=== PATIENT | male | born 1950 | race Caucasian/White ===

== ENCOUNTER 2021-02-15 07:16 | Day surgery (SDC) | payer OTHER, MEDICARE ==
[2021-02-11 16:23] LABS: Absolute Lymphocytes (CBC) 1.9 K/uL (0.7-4.9); Basophils % 0.7 % (0-1.3); Hematocrit 48.4 % (39.6-49.0); Lymphocytes % 28.1 % (15.3-44.8); MPV 9.6 fL (7.6-11.3); RBC Red Blood Cell Count 5.79 M/uL (4.33-5.43)
--- NOTE | 2021-02-11 16:27 | RAD REPORT ---
EXAM DESCRIPTION: RAD - Chest Pa And Lat (2 Views) - 02/11/2021 4:16 pm CLINICAL HISTORY: preop Chest pain. COMPARISON: <Comparisons> FINDINGS: The lungs are clear. The heart is normal in size. No displaced fractures. Sternotomy wires present. IMPRESSION: No acute or concerning finding suspected.
[2021-02-11 16:37] LABS: Potassium 4.4 mmol/L (3.5-5.1)
--- NOTE | 2021-02-13 08:04 | EKG ---
Test Date: 2021-02-11 Test Time: 14:57:26 Senior Java Developer: COREY MEASUREMENT RESULTS: Intervals: Rate: 67 SC: 174 QRSD: 150 QT: 430 QTc: 454 [place]: P: 68 SC: 174 QRS: -64 T: 72 INTERPRETIVE STATEMENTS: Normal sinus rhythm Right bundle branch block Left anterior fascicular block Bifascicular block Voltage criteria for left ventricular hypertrophy Possible Lateral infarct, age undetermined Abnormal ECG Compared to ECG 05/22/2016 17:42:43 Left anterior fascicular block now present Bifascicular block now present Left ventricular hypertrophy now present Myocardial infarct finding now present Left-axis deviation no longer present Electronically Signed On 02-13-21 08:03:12 CDT by Scooter Santana
[2021-02-15] MEDS ORDERED: CEFAZOLIN/SWI 1gm 1 GM/10 ML SYR ONE (08:02)
[2021-02-15] MEDS ORDERED: NA CHLORIDE 0.9% 1,000 ML ONE (08:02)
[2021-02-15] MEDS ORDERED: propofoL 200 MG/20 ML VIAL IV ONE (08:41)
[2021-02-15] MEDS ORDERED: dexAMETHasone 10 MG/ML VIAL ONE (08:41)
[2021-02-15] MEDS ORDERED: MIDAZOLAM HCL 2 MG/2 ML INJ ONE (08:41)
[2021-02-15] MEDS ORDERED: FENTANYL CITR 100 MCG/2 ML ONE (08:41)
[2021-02-15] MEDS ORDERED: KETOROLAC 30 MG/ML INJ ONE (08:41)
[2021-02-15] MEDS ORDERED: ROCURONIUM 50 MG/5 ML VIAL IV ONE (08:42)
[2021-02-15] MEDS ORDERED: ONDANSETRON 4 MG/2 ML VIAL ONE (08:42)
[2021-02-15] MEDS ORDERED: LIDOCAINE 1% MPF 30 ML VIAL ONE (08:52)
--- NOTE | 2021-02-15 09:19 | P.BOP ---
Preoperative diagnosis: tender incarcerated umbilical hernia Postoperative diagnosis: same Primary procedure: Open repair tender incarcerated umbilical hernia Submarine Advisory Team Watch Officer: JASMIN MARTÍNEZ (JUMPBASTING [employer]ACING BASTER) Estimated blood loss: <10cc Specimen: sac Findings: as above Anesthesia: General Transferred to: Recovery Room Condition: Good
[2021-02-15] MEDS: HYDROMORPHONE HCL 1 MG/ML INJ ONE ×2 (09:32→09:35)
[2021-02-15 09:39] VITALS: TEMP 97
[2021-02-15] MEDS ORDERED: CODEINE 30MG/APAP 300MG TAB ONE (10:27)
[2021-02-15 12:05] VITALS: BP 138/66; O2SAT 95
--- NOTE | 2021-02-15 19:18 | OP ---
Date of Procedure: 02/15/2021 Surgeon: Gomez Briones MD Manufacture Specialist: Vi Chavez. Preoperative Diagnosis: Tender incarcerated umbilical hernia. Postoperative Diagnosis: Tender incarcerated umbilical hernia. Procedure: Open repair of tender incarcerated umbilical hernia. Estimated Blood Loss: Less than 10 cc. Specimen: Hernia sac. Anesthesia: General plus local. Indications: This is a case of a 71-year-old patient who comes to us with above diagnosis. Fully ex plained the benefits, alternatives, and risks of repair including, but not limited to infection, blee ding, damage to adjacent structures, anesthesia complication, recurrence, CA and even . He also understands this may not relieve his symptoms. He might need more than one surgical intervention. He understood, signed a consent. Procedure In Detail: The patient was brought to the operating room, placed in supine position. Anes thesia was done without complication. Abdominal area was prepped and draped in a sterile fashion. L ocal anesthesia was applied followed by a curvilinear incision in the periumbilical region. Incision was carried down to fascia. We noticed a hernia sac attached to the umbilical skin, carefully remov ed. Then, the hernia sac was opened, noticed incarcerated omentum after removing some adhesions from it. We were able to reduce back the omentum intact after inspecting it to make sure there was no bl eeding. Hernia sac was removed. Fascial edges were cleaned. We proceeded to close the area with se veral [id number] fashion #1 Prolene. Subcutaneous tissue was closed with 3-0 chromic and skin i n a subcuticular fashion with 3-0 chromic and Steri-Strips on top. Sponge count and instrument counts correct. The patient tolerated the procedure well. The patient w as sent to Recovery in stable condition. HM/MODL Voice ID: [id number] Report ID: [id number]
--- NOTE | 2021-02-15 19:24 | DS ---
Date of Discharge: 02/15/2021 Diagnosis: Tender incarcerated umbilical hernia. Procedure: Open repair of tender incarcerated umbilical hernia. Disposition: Home. Activity: As tolerated. No heavy lifting. Plan: Follow up in my office in 1 week. Call for appointment at [phone]. Keep the area dry for 48 hours, then may shower. Keep Steri-Strip intact. Medications: Include Tylenol No.3 q.4 hours p.r.n. pain, Bactrim DS p.o. b.i.d. TABATHA/ROCAEL Voice ID: [id number] Report ID: [id number]
== END 2021-02-15 10:35 | disposition home or self-care (01) ==
LOC: OR 07:16
PROVIDERS: ATTEND Surgery
PROC: 0WQF0ZZ Repair Abdominal Wall, Open Approach (ICD-10-PCS; principal; 2021-02-15 08:30)
DX: K42.0 Umbilical hernia with obstruction, without gangrene (principal)
CPT/HCPCS: 93005; 85025; 80048; 36415; 82947 ×2; 88302; 71046; 49587; J2704; J2250; J3010; J1100; J1170; J0690; J7030; J2405

== ENCOUNTER → 2023-08-14 | Emergency (ER) | payer OTHER, MEDICARE ==
[2023-08-14 18:27] LABS: Specific Gravity > 1.030 (1.005-1.030); Urine Bacteria <20 /HPF (<20); Urine Bilirubin NEGATIVE (Negative); Urine Blood Negative (Negative); Urine Clarity Clear (Clear); Urine Color Light-Yellow (Yellow); Urine Glucose 4+ (Over) (Negative); Urine Mucus Slight /HPF (None Seen); Urine Protein NEGATIVE (Negative); Urine RBC <5 /HPF (None Seen); Urine Urobilinogen Normal (Normal)
--- NOTE | 2023-08-14 19:58 | EDPHYS ---
Physician Documentation [facility] Name: Nick Adams Age: 73 yrs Sex: Male : 1950 Arrival Date: 08/14/2023 Time: 17:22 Bed 14 Private MD: ED Physician Quentin Rasheed HPI: 08/14 18:02 This 73 yrs old Male presents to ER via Ambulatory with complaints of Urinary Retention.snw 18:02 Onset: The symptoms/episode began/occurred acutely. Associated signs and symptoms: snw Pertinent positives: bloating/tenseness in abd. It is unknown whether or not the patient has had similar symptoms in the past. awaiting surgery on prostate per Dr. Crowley. Next appt 09/05/23. Historical: - Allergies: 17:39 No Known Allergies; bp - PMHx: 17:39 Myocardial infarction; Kidney stones; Hypertension; Hyperlipidemia; Diabetes - NIDDM; bp - Immunization history:: Adult Immunizations up to date. - Social history:: Smoking status: Patient denies any tobacco usage or history of. ROS: 18:01 Constitutional: Negative for fever, chills, and weight loss, Eyes: Negative for injury, snw pain, redness, and discharge, ENT: Negative for injury, pain, and discharge, Neck: Negative for injury, pain, and swelling, Cardiovascular: Negative for chest pain, palpitations, and edema, Respiratory: Negative for shortness of breath, cough, wheezing, and pleuritic chest pain, Abdomen/GI: Negative for abdominal pain, nausea, vomiting, diarrhea, and constipation, Back: Negative for injury and pain, : Negative for injury, bleeding, discharge, and swelling, unable to urinate. MS/Extremity: Negative for injury and deformity, Skin: Negative for injury, rash, and discoloration, Neuro: Negative for headache, weakness, numbness, tingling, and seizure, Psych: Negative for depression, anxiety, suicide ideation, homicidal ideation, and hallucinations, Exam: 18:01 Constitutional: This is a well developed, well nourished patient who is awake, alert, snw and in no acute distress. Head/Face: Normocephalic, atraumatic. Eyes: Pupils equal round and reactive to light, extra-ocular motions intact. Lids and lashes normal. Conjunctiva and sclera are non-icteric and not injected. Cornea within normal limits. Periorbital areas with no swelling, redness, or edema. ENT: Nares patent. No nasal discharge, no septal abnormalities noted. Tympanic membranes are normal and external auditory canals are clear. Oropharynx with no redness, swelling, or masses, exudates, or evidence of obstruction, uvula midline. Mucous membranes moist. Neck: Trachea midline, no thyromegaly or masses palpated, and no cervical lymphadenopathy. Supple, full range of motion without nuchal rigidity, or vertebral point tenderness. No Meningismus. Chest/axilla: Normal chest wall appearance and motion. Nontender with no deformity. No lesions are appreciated. Cardiovascular: Regular rate and rhythm with a normal S1 and S2. No gallops, murmurs, or rubs. Normal PMI, no JVD. No pulse deficits. Respiratory: Lungs have equal breath sounds bilaterally, clear to auscultation and percussion. No rales, rhonchi or wheezes noted. No increased work of breathing, no retractions or nasal flaring. Abdomen/GI: Soft, non-tender, with normal bowel sounds. No distension or tympany. No guarding or rebound. No evidence of tenderness throughout. Back: No spinal tenderness. No costovertebral tenderness. Full range of motion. Skin: Warm, dry with normal turgor. Normal color with no rashes, no lesions, and no evidence of cellulitis. MS/ Extremity: Pulses equal, no cyanosis. Neurovascular intact. Full, normal range of motion. Neuro: Awake and alert, GCS 15, oriented to person, place, time, and situation. Cranial nerves II-XII grossly intact. Motor strength 5/5 in all extremities. Sensory grossly intact. Cerebellar exam normal. Normal gait. Psych: Awake, alert, with orientation to person, place and time. Behavior, mood, and affect are within normal limits. Vital Signs: 17:39 BP 145 / 85; Pulse 68; Resp 16; Temp 98.1; Pulse Ox 97% ; Weight 97.52 kg; Height 5 ft. bp 10 in. ; 19:35 BP 133 / 83; Pulse 84; Resp 16; Pulse Ox 96% ; cp4 17:39 Body Mass Index 30.85 (97.52 kg, 177.8 cm) bp MDM: 17:49 Patient medically screened. snw 19:57 Differential diagnosis: urinary retention, uti, dysuria. Data reviewed: vital signs, snw nurses notes. Care significantly affected by the following chronic conditions: Diabetes, Hypertension. Counseling: I had a detailed discussion with the patient and/or guardian regarding the historical points, exam findings, and any diagnostic results supporting the discharge/admit diagnosis, lab results, the need for outpatient follow up, for definitive care, to return to the emergency department if symptoms worsen or persist or if there are any questions or concerns that arise at home. Special discussion: Based on the history and exam findings, there is no indication for further emergent testing or inpatient evaluation. I discussed with the patient/guardian the need to see the primary care provider for further evaluation of the symptoms. I discussed with the patient/guardian the need to see the urologist for further evaluation of the symptoms. 08/14 18:00 Order name: Urine W/Microscopic (UAM); Complete Time: 18:41 snw 08/14 20:08 Order name: Glucose, Ancillary Testing; Complete Time: 20:08 EDMS 08/14 18:00 Order name: Gleason; Complete Time: 18:08 snw 08/14 18:00 Order name: Leg Bag; Complete Time: 18:08 snw 08/14 18:41 Order name: FSBS; Complete Time: 19:56 snw Administered Medications: No medications were administered Disposition: 18:02 I was immediately available on-site in the Emergency Department for consultation in the ms3 care of the patient. Disposition Summary: 08/14/23 19:57 Discharge Ordered Notes: Location: Home snw Condition: Stable snw Diagnosis - Enlarged prostate with lower urinary tract symptoms snw Followup: snw - With: Emergency Department - When: As needed - Reason: Worsening of condition Followup: snw - With: Federico Crowley MD - When: 1 week - Reason: Recheck today's complaints, Continuance of care Discharge Instructions: - Discharge Summary Sheet snw - Indwelling Urinary Catheter Care, Adult snw - Acute Urinary Retention, Male snw Forms: - Medication Reconciliation Form snw - Thank You Letter snw - Antibiotic Education snw - Prescription Opioid Use snw - Patient Portal Instructions snw - Leadership Thank You Letter snw Signatures: Dispatcher [employer] EDNoemí Lui FNP-C FNP-Csnw Umair Alejandra, RN RN bp Kathya, Quentin, DO DO ms3
--- NOTE | 2023-08-14 19:58 | ER ---
Nurse's Notes [facility] Name: Nick Adams Age: 73 yrs Sex: Male : 1950 Arrival Date: 08/14/2023 Time: 17:22 Bed 14 Private MD: Diagnosis: Enlarged prostate with lower urinary tract symptoms Presentation: 08/14 17:39 Chief complaint: Patient states: OLIGURIA SINCE THIS AM, UROSURGERY PENDING 09/05. bp Coronavirus screen: At this time, the client does not indicate any symptoms associated with coronavirus-19. Ebola Screen: No symptoms or risks identified at this time. Initial Sepsis Screen: Does the patient meet any 2 criteria? No. Patient's initial sepsis screen is negative. Does the patient have a suspected source of infection? No. Patient's initial sepsis screen is negative. Risk Assessment: Do you want to hurt yourself or someone else? Patient reports no desire to harm self or others. Onset of symptoms was August 14, 2023 at 07:00. 17:39 Method Of Arrival: Ambulatory bp 17:39 Acuity: TYLER 3 bp Triage Assessment: 17:39 General: Appears uncomfortable, Behavior is calm, cooperative, appropriate for age. bp Pain: Complains of pain in pelvis. : Reports inability to void. Historical: - Allergies: 17:39 No Known Allergies; bp - PMHx: 17:39 Myocardial infarction; Kidney stones; Hypertension; Hyperlipidemia; Diabetes - NIDDM; bp - Immunization history:: Adult Immunizations up to date. - Social history:: Smoking status: Patient denies any tobacco usage or history of. Screenin:31 [facility] ED Fall Risk Assessment (Adult) History of falling in the last 3 months, cp4 including since admission No falls in past 3 months (0 pts) Confusion or Disorientation No (0 pts) Intoxicated or Sedated No (0 pts) Impaired Gait No (0 pts) Mobility Assist Device Used No (0 pt) Altered Elimination No (0 pt) Score/Fall Risk Level 0 - 2 = Low Risk Oriented to surroundings, Maintained a safe environment, Educated pt \T\ family on fall prevention, incl call for assistance when getting out of bed, Assessed \T\ reinforced patient's understanding of fall precautions, Provided non-skid footwear, Hourly rounding (assess needs \T\ fall precautionary measures) done. Abuse screen: Denies threats or abuse. Nutritional screening: No deficits noted. Tuberculosis screening: No symptoms or risk factors identified. Assessment: 19:31 General: Appears in no apparent distress. Behavior is calm, cooperative, appropriate cp4 for age. Pain: Denies pain. Vital Signs: 17:39 BP 145 / 85; Pulse 68; Resp 16; Temp 98.1; Pulse Ox 97% ; Weight 97.52 kg; Height 5 ft. bp 10 in. ; 19:35 BP 133 / 83; Pulse 84; Resp 16; Pulse Ox 96% ; cp4 17:39 Body Mass Index 30.85 (97.52 kg, 177.8 cm) bp ED Course: 17:25 Patient arrived in ED. [id number] 17:40 Triage completed. bp 17:41 Arm band placed on. bp 17:49 Noemí Muse FNP-C is PHCP. snw 17:49 Quentin Rasheed DO is Attending Physician. snw 18:07 Sayra Patton is Primary Nurse. cp4 18:16 Urine W/Microscopic (UAM) Sent. cp4 18:30 Gleason cath inserted, using sterile technique, 16 Fr., by ED staff, balloon inflated, to cp4 gravity drainage, urine specimen collected. 19:31 Bed in low position. Call light in reach. Side rails up X 1. cp4 19:31 No provider procedures requiring assistance completed. Patient did not have IV access cp4 during this emergency room visit. 19:57 Federico Crowley MD is Referral Physician. snw 20:09 Provided Education on: urinary catheter. cp4 Administered Medications: No medications were administered Medication: 19:31 VIS not applicable for this client. cp4 Outcome: 19:57 Discharge ordered by . snw 20:09 Discharged to home ambulatory, cp4 20:09 Condition: stable 20:09 Discharge instructions given to patient, Instructed on discharge instructions, follow up and referral plans. Demonstrated understanding of instructions, follow-up care, 20:10 Patient left the ED. cp4 Signatures: Noemí Muse FNP-C FNP-Csnw Peltier, Brian, RN RN Annette Olivo [id number] Sayra Patton cp4
[2023-08-14 23:28] VITALS: BP 133/83; TEMP 98.1; O2SAT 96
== END ==
LOC: ER 17:22
DX: N40.1 Benign prostatic hyperplasia with lower urinary tract symptoms (principal); R33.8 Other retention of urine; E11.9 Type 2 diabetes mellitus without complications; I10 Essential (primary) hypertension; E78.5 Hyperlipidemia, unspecified; I25.2 Old myocardial infarction
CPT/HCPCS: 51702; 81001; 82947; 99284